=== PATIENT | female | born 1995 | race Two or more races ===

== ENCOUNTER 2021-02-01 18:46 | Emergency (ER) | payer SELFPAY ==
[~2021-02-01] VITALS: Ht 172.7 cm; Wt 90.7 kg
[~2021-02-01 18:46] MED LIST: BACL10TA PO; DEXM25CA PO; LORA-516 PO; MIRT1TAB39 PO; ZOLP5TAB PO
[2021-02-01] MEDS ORDERED: methylPREDNISolone SOD SUCC 125 MG/2 ML VL IM ONE (20:00)
[2021-02-01 22:30] VITALS: BP 140/83
== END 2021-02-01 22:43 | disposition home or self-care (01) ==
LOC: ER 18:46
DX: L24.9 Irritant contact dermatitis, unspecified cause (principal); V49.9XXA Car occupant (driver) (passenger) injured in unspecified traffic accident, initial encounter; Y93.89 Activity, other specified; Y92.89 Other specified places as the place of occurrence of the external cause; Y99.8 Other external cause status
CPT/HCPCS: 72040; 72100; 96372; 99284; J2930